=== PATIENT | female | born 1995 | race Caucasian/White ===

== ENCOUNTER → 2017-09-04 | Outpatient (REF) | payer MEDICAID ==
[~2017-09-04] MED LIST: PRENATAL VITAMIN PO
[2017-09-04 19:58] LABS: MEAN CORPUSCULAR VOLUME 94.2 fl (80.0-96.0); PLATELET COUNT, AUTOMATED 229 10^3/uL (150-450); WHITE BLOOD COUNT 6.6 10^3/uL (4.0-10.0)
[2017-09-04 20:56] LABS: HCG, SERUM QUANTITATIVE 3374 MIU/ML
[2017-09-06 11:41] LABS: HBsAg Prenatal NEGATIVE (NEGATIVE)
== END ==
LOC: M LAB REF 16:50
PROVIDERS: ATTEND Obstetrics & Gynecology
DX: O36.80X0 Pregnancy with inconclusive fetal viability, not applicable or unspecified (principal); Z3A.00 Weeks of gestation of pregnancy not specified

== ENCOUNTER → 2018-01-30 | Outpatient (CLI) | payer OTHER, MEDICAID ==
[2018-01-30 16:36] LABS: HEMATOCRIT 35.7 % (36.0-47.0); HEMOGLOBIN 12.5 g/dl (12.0-16.0); MEAN CORPUSCULAR HEMOGLOBIN 34.2 pg (27.0-33.0); MEAN CORPUSCULAR VOLUME 97.5 fl (80.0-96.0); PLATELET COUNT, AUTOMATED 196 10^3/uL (150-450); RED BLOOD COUNT 3.66 10^6/uL (4.00-5.40); RED CELL DISTRIBUTION WIDTH 12.9 % (11.5-14.5); WHITE BLOOD COUNT 8.6 10^3/uL (4.0-10.0)
[2018-01-30 17:13] LABS: GLUCOSE CHALLENGE TEST 1 HOUR 89 MG/DL (LESS THAN 140)
== END ==
LOC: M WUC 12:48
DX: Z34.82 Encounter for supervision of other normal pregnancy, second trimester (principal)

== ENCOUNTER → 2018-04-10 | Outpatient (REF) | payer OTHER, MEDICAID | LOC: M LAB REF 16:43 | DX: Z34.83 Encounter for supervision of other normal pregnancy, third trimester (principal) ==

== ENCOUNTER 2018-04-27 18:33 | Outpatient (CLI) | payer OTHER, MEDICAID | END 2018-04-27 20:25 | disposition home or self-care (01) | LOC: M LDO 18:33 | DX: O26.853 Spotting complicating pregnancy, third trimester (principal); O26.893 Other specified pregnancy related conditions, third trimester; Z3A.38 38 weeks gestation of pregnancy | CPT/HCPCS: 59025 ==

== ENCOUNTER 2018-04-29 00:58 | Inpatient (IN) | payer OTHER, MEDICAID ==
[2018-04-29 06:32] LABS: HEMATOCRIT 36.8 % (36.0-47.0); MEAN CORPUSCULAR HEMOGLOBIN 33.5 pg (27.0-33.0); MEAN CORPUSCULAR HGB CONC 35.3 g/dl (32.0-36.5); MEAN CORPUSCULAR VOLUME 94.8 fl (80.0-96.0); PLATELET COUNT, AUTOMATED 153 10^3/uL (150-450); RED BLOOD COUNT 3.88 10^6/uL (4.00-5.40); RED CELL DISTRIBUTION WIDTH 12.9 % (11.5-14.5); WHITE BLOOD COUNT 9.9 10^3/uL (4.0-10.0)
[2018-04-29] MEDS: LR 800 ML IV (06:37)
[2018-04-29] MEDS: LR 1,000 ML IV ×2 (07:17→18:45)
[2018-04-29] MEDS ORDERED: FENTANYL 2MCG/ML ROPIVACAINE 0.2% IN 0.9% NACL 200ML IVBAG As Ordered (07:47)
[2018-04-29] MEDS ORDERED: NALOXONE INJ 0.4 MG/1 ML VIAL (J2310) IV (09:00)
[2018-04-29] MEDS ORDERED: REFRIGERATOR IV KEYS XX (09:00)
[2018-04-29] MEDS ORDERED: FENTANYL/ROPIVACAINE/NACL BAG 200 ML EPIDURAL (09:00)
[2018-04-29] MEDS ORDERED: EPIDURAL COMMENT XX (09:00)
[2018-04-29] MEDS ORDERED: EPIDURAL/PCA KEYS XX (09:00)
[2018-04-29] MEDS ORDERED: ONDANSETRON 4MG/2ML VIAL (J2405) IV (09:00)
[2018-04-29] MEDS ORDERED: PRENATAL VITAMINS CHEWABLE TABLET PO (09:00)
[2018-04-29] MEDS ORDERED: diphenhydrAMINE INJ 50MG/ML VIAL (J1200) IV (09:00)
[2018-04-29] MEDS ORDERED: LACTATED RINGER'S 1000 ML IV (09:00)
[2018-04-29] MEDS ORDERED: ePHEDrine SULFATE 25 MG/5 ML(5MG/ML) SYRINGE IV (09:00)
[2018-04-29] MEDS: PRENATAL VITAMINS CHEWABLE TABLET PO (09:00)
[2018-04-29] MEDS ORDERED: OXYTOCIN 30 UNITS IN 0.9% NaCl 500ML IV BAG (J2590) As Ordered (09:51)
[2018-04-29] MEDS: OXYTOCIN DRIP 30 UNITS in APPROPRIATE DILUENT 1 EA IV (12:52)
[2018-04-29] MEDS ORDERED: METHYLERGONOVINE MALEATE 0.2 MG TAB PO (13:00)
[2018-04-29] MEDS ORDERED: ACETAMINOPHEN 500 MG TAB PO (13:00)
[2018-04-29] MEDS ORDERED: ANUSOL HC CREAM 30GM TOP (13:00)
[2018-04-29] MEDS ORDERED: DIBUCAINE 1% OINTMENT 30GM TOP (13:00)
[2018-04-29 13:19] LABS: CORD GAS ABE V -0.6; CORD GAS O2 SAT V 60.2 %; CORD GAS PCO2 V 44.7 mmHg; CORD GAS PH V 7.366 UNITS; CORD GAS PO2 V 26.2 mmHg; CORD GAS SBC V 22.9 MEQ/L; CORD GAS TCO2 V 26.4 MEQ/L
[2018-04-29 13:21] LABS: CORD GAS ABE A -0.9; CORD GAS HCO3 A 25.9 MEQ/L; CORD GAS O2 SAT A 50.7 %; CORD GAS PCO2 A 50.8 mmHg; CORD GAS PH A 7.326 UNITS; CORD GAS PO2 A 22.5 mmHg; CORD GAS SBC A 22.5 MEQ/L; CORD GAS TCO2 A 27.5 MEQ/L
[2018-04-29] MEDS: LR 400 ML IV (19:03)
[2018-04-29] MEDS: DOCUSATE SODIUM 100 MG CAP PO (19:27)
[2018-04-30] MEDS: PRENATAL VITAMINS CHEWABLE TABLET PO (08:28)
[2018-04-30] MEDS: IBUPROFEN 800 MG TAB PO (08:28)
[2018-04-30] MEDS: RHOGAM 300 MCG (1500 IU) INJ (J2790) IM (19:32)
[2018-04-30] MEDS: MEASLES,MUMPS,RUBELLA VACCINE INJ (MMR-II) (90707) SC (19:33)
[2018-05-01] MEDS: PRENATAL VITAMINS CHEWABLE TABLET PO (09:00)
== END 2018-05-01 10:35 | disposition home or self-care (01) | DRG 775 ==
LOC: M LDO 00:58 → M LDI 05:59 → M OBS 15:23
PROVIDERS: Obstetrics & Gynecology
PROC: 10E0XZZ Delivery of Products of Conception, External Approach (ICD-10-PCS; principal; 2018-04-29)
PROC: 10907ZC Drainage of Amniotic Fluid, Therapeutic from Products of Conception, Via Natural or Artificial Opening (ICD-10-PCS; 2018-04-29)
DX: O80 Encounter for full-term uncomplicated delivery (principal); Z37.0 Single live birth; Z3A.39 39 weeks gestation of pregnancy; Z88.0 Allergy status to penicillin; Z88.1 Allergy status to other antibiotic agents

== ENCOUNTER → 2019-07-09 | Outpatient (REF) | payer OTHER, MEDICAID ==
[~2019-07-09] MED LIST changes: +IBUP-1114 PO; +MAPA500T2 PO; +PRENTAB9 PO
[2019-07-09 17:50] LABS: HEMATOCRIT 40.9 % (36.0-47.0); HEMOGLOBIN 14.4 g/dl (12.0-15.5); MEAN CORPUSCULAR HGB CONC 35.2 g/dl (32.0-36.5); MEAN CORPUSCULAR VOLUME 93.6 fl (80.0-96.0); PLATELET COUNT, AUTOMATED 236 10^3/uL (150-450); RED BLOOD COUNT 4.37 10^6/uL (4.00-5.40); WHITE BLOOD COUNT 7.7 10^3/uL (4.0-10.0)
[2019-07-09 20:01] LABS: HCG, SERUM QUANTITATIVE 1036 MIU/ML
[2019-07-10 09:58] LABS: RUBELLA IgG QUALITATIVE IMMUNE (IMMUNE)
[2019-07-10 10:27] LABS: HEPATITIS C VIRUS ABY INDEX < 0.0 INDEX (<0.8)
[2019-07-10 10:28] LABS: HIV 1&2 SCREEN CENTAUR NEGATIVE (NEGATIVE)
== END ==
LOC: M LAB REF 16:49
PROVIDERS: ATTEND Nurse Practitioner Women's Health
DX: Z32.01 Encounter for pregnancy test, result positive (principal); O36.80X0 Pregnancy with inconclusive fetal viability, not applicable or unspecified

== ENCOUNTER → 2019-07-28 | Outpatient (REF) | payer OTHER, MEDICAID ==
[2019-07-28 14:51] LABS: CHLAMYDIA DNA AMPLIFICATION NEGATIVE (NEGATIVE); GC DNA AMPLIFICATION NEGATIVE (NEGATIVE)
== END ==
LOC: M LAB REF 13:06
PROVIDERS: ATTEND Advanced Practice Midwife
DX: Z34.81 Encounter for supervision of other normal pregnancy, first trimester (principal); Z3A.00 Weeks of gestation of pregnancy not specified

== ENCOUNTER → 2019-08-03 | Outpatient (CLI) | payer OTHER, MEDICAID | LOC: M SMT 13:18 | PROVIDERS: ATTEND Advanced Practice Midwife | DX: O02.1 Missed abortion (principal); Z3A.00 Weeks of gestation of pregnancy not specified ==

== ENCOUNTER → 2019-08-14 | Outpatient (CLI) | payer OTHER, MEDICAID | LOC: M SMT 15:37 | PROVIDERS: ATTEND Advanced Practice Midwife | DX: O02.1 Missed abortion (principal) ==

== ENCOUNTER 2019-10-02 16:45 | Emergency (ER) | payer OTHER, MEDICAID ==
[~2019-10-02] VITALS: Ht 170.2 cm; Wt 65.9 kg
[2019-10-02 17:50] LABS: BLOOD UREA NITROGEN 12 MG/DL (7-18); CALCIUM LEVEL 9.6 MG/DL (8.5-10.1); CARBON DIOXIDE LEVEL 28 MEQ/L (21-32); CHLORIDE LEVEL 107 MEQ/L (98-107); CREATININE FOR GFR 0.65 MG/DL (0.55-1.30); GLOMERULAR FILTRATION RATE > 60.0 (>60); GLUCOSE, FASTING 85 MG/DL (70-100); HCG, SERUM QUANTITATIVE 543 MIU/ML; POTASSIUM SERUM 4.3 MEQ/L (3.5-5.1); SODIUM LEVEL 140 MEQ/L (136-145)
[2019-10-02] MEDS ORDERED: ACETAMINOPHEN 325 MG TAB PO ONE (18:00)
[2019-10-02 18:45] LABS: BASO % 0.4 % (0.0-1.0); EOS # 0.1 10^3/uL (0.0-0.5); EOS % 1.3 % (0.0-3.0); HEMATOCRIT 41.9 % (36.0-47.0); HEMOGLOBIN 14.3 g/dl (12.0-15.5); LYMPH # 1.5 10^3/uL (1.5-5.0); LYMPH % 21.8 % (24.0-44.0); MEAN CORPUSCULAR HEMOGLOBIN 33.1 pg (27.0-33.0); MEAN CORPUSCULAR HGB CONC 34.1 g/dl (32.0-36.5); MONO # 0.6 10^3/uL (0.0-0.8); MONO % 8.5 % (0.0-5.0); NEUTROPHILS # 4.7 10^3/uL (1.5-8.5); NEUTROPHILS % 67.9 % (36.0-66.0); PLATELET COUNT, AUTOMATED 202 10^3/uL (150-450); RED BLOOD COUNT 4.32 10^6/uL (4.00-5.40)
--- NOTE | 2019-10-02 19:24 | REPVR ---
PROCEDURE INFORMATION: Exam: US , Transvaginal Exam date and time: 10/02/2019 6:38 PM Clinical history: 24 years old, female; Lmp or gestational age (in weeks): ~4; Antepartum complications; Bleeding; ; Additional info: + home test, vaginal bleeding TECHNIQUE: Imaging protocol: Real-time transvaginal obstetrical ultrasound of the maternal pelvis and a first trimester with image documentation. Transvaginal imaging was used for better evaluation of the fetus and adnexa. COMPARISON: No relevant prior studies available. FINDINGS: GESTATION: Gestation: No evidence of a gestational sac, yolk sac or pole within the uterus. MATERNAL: Uterus: Uterus measures 8.5 x 4.9 x 5.4 cm. Endometrial echocomplex measures 5 mm. Right adnexa: Examination of the right adnexal region demonstrates a complex solid-appearing mass measuring 2.8 x 2.2 x 1.8 cm. No significant increased flow demonstrated within the right adnexal region. Numerous follicles demonstrated in the right ovary. Left adnexa: Numerous follicles in the left ovary. Normal flow. IMPRESSION: Empty uterus in a patient with a weakly positive beta hCG level. Findings may indicate very early IUP prior to visualization of a gestational sac or fetus. Correlation with serial beta-hCG levels and follow ultrasound recommended in order to exclude ectopic (particularly in the setting of an apparent solid right ovarian or paraovarian mass) verses very early or early failure. Electronically signed by: Shadi Piedra On 10/02/2019 19:24:04 PM
[2019-10-02 20:01] VITALS: BP 137/69
== END 2019-10-02 20:09 | disposition home or self-care (01) ==
LOC: M ED 16:45
DX: O20.9 Hemorrhage in early pregnancy, unspecified (principal); Z88.1 Allergy status to other antibiotic agents; O99.330 Smoking (tobacco) complicating pregnancy, unspecified trimester; F17.210 Nicotine dependence, cigarettes, uncomplicated; Z3A.00 Weeks of gestation of pregnancy not specified

== ENCOUNTER → 2019-10-05 | Outpatient (CLI) | payer OTHER, MEDICAID | LOC: M SMT 10:01 | PROVIDERS: ATTEND Physician Assistant | DX: O26.859 Spotting complicating pregnancy, unspecified trimester (principal); Z3A.00 Weeks of gestation of pregnancy not specified ==

== ENCOUNTER → 2019-10-12 | Outpatient (REF) | payer OTHER | LOC: M PLALAB 10:47 | PROVIDERS: ATTEND Advanced Practice Midwife | DX: Z53.9 Procedure and treatment not carried out, unspecified reason (principal) ==

== ENCOUNTER → 2019-10-22 | Outpatient (CLI) | payer OTHER, MEDICAID | LOC: M PLALAB 13:12 | PROVIDERS: ATTEND Advanced Practice Midwife | DX: O03.9 Complete or unspecified spontaneous abortion without complication (principal) ==

== ENCOUNTER → 2019-10-27 | Outpatient (CLI) | payer OTHER, MEDICAID | LOC: M PLALAB 14:57 | PROVIDERS: ATTEND Advanced Practice Midwife | DX: O03.30 Unspecified complication following incomplete spontaneous abortion (principal) ==

== ENCOUNTER → 2019-11-03 | Outpatient (CLI) | payer OTHER, MEDICAID | LOC: M PLALAB 14:10 | PROVIDERS: ATTEND Advanced Practice Midwife | DX: O03.30 Unspecified complication following incomplete spontaneous abortion (principal) ==

== ENCOUNTER → 2019-11-09 | Outpatient (CLI) | payer OTHER, MEDICAID | LOC: M PLALAB 14:17 | PROVIDERS: ATTEND Advanced Practice Midwife | DX: O02.1 Missed abortion (principal) ==

== ENCOUNTER → 2020-04-06 | Outpatient (REF) | payer OTHER, MEDICAID ==
[2020-04-06 14:17] LABS: HEMATOCRIT 40.7 % (36.0-47.0); MEAN CORPUSCULAR HEMOGLOBIN 32.9 pg (27.0-33.0); MEAN CORPUSCULAR HGB CONC 34.4 g/dl (32.0-36.5); MEAN CORPUSCULAR VOLUME 95.8 fl (80.0-96.0); PLATELET COUNT, AUTOMATED 213 10^3/uL (150-450); RED BLOOD COUNT 4.25 10^6/uL (4.00-5.40)
[2020-04-06 15:36] LABS: HEPATITIS B SURFACE ANTIGEN NEGATIVE (NEGATIVE); HEPATITIS C VIRUS ABY INDEX 0.1 INDEX (<0.8); HIV 1&2 SCREEN CENTAUR NEGATIVE (NEGATIVE)
== END ==
LOC: M PLALAB 11:11
PROVIDERS: ATTEND Advanced Practice Midwife
DX: Z34.91 Encounter for supervision of normal pregnancy, unspecified, first trimester (principal)

== ENCOUNTER → 2020-04-20 | Outpatient (REF) | payer OTHER, MEDICAID ==
[2020-04-21 14:02] LABS: CHLAMYDIA DNA AMPLIFICATION NEGATIVE (NEGATIVE); GC DNA AMPLIFICATION NEGATIVE (NEGATIVE)
== END ==
LOC: M SFHCWAGY 08:45
PROVIDERS: ATTEND Advanced Practice Midwife
DX: Z12.4 Encounter for screening for malignant neoplasm of cervix (principal)

== ENCOUNTER → 2020-05-02 | Outpatient (CLI) | payer OTHER, MEDICAID ==
--- NOTE | 2020-05-02 11:11 | REP ---
Clinical: Early with vaginal bleeding. Technique: Transabdominal and transvaginal first trimester obstetrical ultrasound with color Doppler evaluation. Findings: Ultrasound examination demonstrates single live early intrauterine . Gestational sac with yolk sac and pole identified. CRL of 33 mm corresponds to 10 weeks 1 day gestational age with estimated date of delivery 11/27/2020. heart rate equals 176 beats per minute. A subchorionic hemorrhage is identified anterolateral to the gestational sac measuring 58 by 50 by 7 mm. Maternal ovaries are normal and a right corpus luteal cyst is identified. Impression: 1. Single live early intrauterine at 10 weeks 1 day gestational age. 2. Moderate subchorionic hemorrhage noted.
== END ==
LOC: M WHC 10:17
PROVIDERS: ATTEND Advanced Practice Midwife
DX: O20.0 Threatened abortion (principal)

== ENCOUNTER → 2020-06-02 | Outpatient (CLI) | payer OTHER, MEDICAID | LOC: M PLALAB 11:00 | PROVIDERS: ATTEND Advanced Practice Midwife | DX: Z34.82 Encounter for supervision of other normal pregnancy, second trimester (principal); Z36.89 Encounter for other specified antenatal screening ==

== ENCOUNTER → 2020-07-06 | Outpatient (CLI) | payer OTHER, MEDICAID ==
--- NOTE | 2020-08-08 10:52 | REP ---
OBSTETRIC ULTRASOUND FOR ANATOMY FINDINGS: There is a single intrauterine gestation in a transverse lie with the head to the maternal right. The placenta is posterior. THE INFERIOR MARGIN OF THE PLACENTA EXTENDS COMPLETELY ACROSS THE INTERNAL CERVICAL OS AND FORMS A COMPLETE PLACENTA PREVIA. There is no placenta abruption. Placental maturity is grade 0. heart rate is 140 beats per minute. Composite gestational age by todays ultrasound is 19 weeks 1 day. Estimated weight is 272 grams. This corresponds to the 41st percentile. Subjectively the amniotic fluid volume is normal. The following anatomic structures are identified and are unremarkable: Cisterna magna, cavum septum pellucidum, thalami, spine, stomach, kidneys, four chamber heart, cardiac right and left ventricular outflow tracts, bladder, three-vessel cord, cord insertion, upper and lower extremities, and face and upper lip. No anomalies are identified. IMPRESSION: THERE IS A COMPLETE PLACENTA PREVIA DESCRIBED. Otherwise, no anomalies. MTDD
== END ==
LOC: M WHC 09:34
PROVIDERS: ATTEND Advanced Practice Midwife
DX: O44.02 Complete placenta previa NOS or without hemorrhage, second trimester (principal); Z3A.19 19 weeks gestation of pregnancy

== ENCOUNTER → 2020-08-23 | Outpatient (CLI) | payer OTHER, MEDICAID ==
[2020-08-23 12:27] LABS: HEMATOCRIT 38.4 % (36.0-47.0); HEMOGLOBIN 12.8 g/dl (12.0-15.5); MEAN CORPUSCULAR HEMOGLOBIN 32.6 pg (27.0-33.0); MEAN CORPUSCULAR HGB CONC 33.3 g/dl (32.0-36.5); MEAN CORPUSCULAR VOLUME 97.7 fl (80.0-96.0); PLATELET COUNT, AUTOMATED 186 10^3/uL (150-450); RED BLOOD COUNT 3.93 10^6/uL (4.00-5.40); WHITE BLOOD COUNT 6.4 10^3/uL (4.0-10.0)
== END ==
LOC: M PLALAB 08:25
PROVIDERS: ATTEND Advanced Practice Midwife
DX: Z34.82 Encounter for supervision of other normal pregnancy, second trimester (principal); Z3A.00 Weeks of gestation of pregnancy not specified

== ENCOUNTER → 2020-10-03 | Outpatient (CLI) | payer OTHER, MEDICAID ==
--- NOTE | 2020-10-04 03:56 | REP ---
INDICATION: O44.03 F/U PLACENTA PREVIA COMPARISON: 07/06/2020 TECHNIQUE: Transabdominal obstetrical ultrasound with color Doppler evaluation. FINDINGS: Examination demonstrates a single live intrauterine in cephalic presentation. motion is identified by technologist. Placenta is noted posterior and grade 2 without evidence for placenta previa or abruption. Multiple venous lakes are again noted. The placental tip measures 3.8 cm from the closed internal os. Amniotic fluid volume is normal. Cervix appears closed. Gestational age at 31 weeks 6 days FHR equals 138 beats per minute. LEXUS: 11.7 cm IMPRESSION: Multiple placental venous lakes again noted. No evidence for placenta previa. <Electronically signed by Carl Chen > 10/04/20 [id number]
== END ==
LOC: M WHC 08:56
PROVIDERS: ATTEND Advanced Practice Midwife
DX: O44.03 Complete placenta previa NOS or without hemorrhage, third trimester (principal); Z3A.31 31 weeks gestation of pregnancy

== ENCOUNTER → 2020-11-07 | Outpatient (REF) | payer OTHER, MEDICAID | LOC: M LAB REF 13:10 | PROVIDERS: ATTEND Obstetrics & Gynecology | DX: Z36.89 Encounter for other specified antenatal screening (principal); Z3A.36 36 weeks gestation of pregnancy ==

== ENCOUNTER 2020-11-15 09:55 | Outpatient (CLI) | payer OTHER, MEDICAID ==
[~2020-11-15] VITALS: Ht 170.2 cm; Wt 87.7 kg
[2020-11-15 10:08] VITALS: BP 115/65
== END 2020-11-15 10:44 | disposition home or self-care (01) ==
LOC: M LDO 09:55
PROVIDERS: ATTEND Obstetrics & Gynecology
DX: O26.893 Other specified pregnancy related conditions, third trimester (principal); Z3A.38 38 weeks gestation of pregnancy
CPT/HCPCS: 59025; 59412; G0378; G0463

== ENCOUNTER 2020-11-23 06:55 | Inpatient (IN) | payer OTHER, MEDICAID ==
[~2020-11-23] VITALS: Ht 170.2 cm; Wt 89.5 kg
[2020-11-23] VITALS (33 sets, daily range): BP systolic 87–144; BP diastolic 56–88
[2020-11-23] MEDS ORDERED: PRENTAB9 PO (07:23)
[2020-11-23] MEDS: miSOPROStol 50MCG 1/2 TABLET PO SCH ×2 (09:00→13:16)
[2020-11-23 09:02] LABS: HEMATOCRIT 36.9 % (36.0-47.0); HEMOGLOBIN 12.7 g/dl (12.0-15.5); MEAN CORPUSCULAR HEMOGLOBIN 32.6 pg (27.0-33.0); MEAN CORPUSCULAR HGB CONC 34.4 g/dl (32.0-36.5); MEAN CORPUSCULAR VOLUME 94.9 fl (80.0-96.0); PLATELET COUNT, AUTOMATED 183 10^3/uL (150-450); RED BLOOD COUNT 3.89 10^6/uL (4.00-5.40); WHITE BLOOD COUNT 10.9 10^3/uL (4.0-10.0)
[2020-11-23] MEDS ORDERED: OXYTOCIN 30 UNITS IN 0.9% NaCl 500ML IV BAG (J2590) As Ordered ONE (17:43)
[2020-11-23] MEDS ORDERED: OXYTOCIN DRIP 30 UNITS in IV 1 EA IV SCH (17:45)
[2020-11-23] MEDS: LR 1,000 ML IV SCH ×2 (17:49→20:41)
[2020-11-23] MEDS ORDERED: FENTANYL 2MCG/ML ROPIVACAINE 0.2% IN 0.9% NACL 100ML IVBAG As Ordered ONE (20:07)
[2020-11-23] MEDS ORDERED: FENTANYL/ROPIVACAINE/NACL BAG 100 ML EPIDURAL SCH (21:00)
[2020-11-23] MEDS ORDERED: LACTATED RINGER'S 1000 ML IV PRN (21:00)
[2020-11-23] MEDS ORDERED: EPIDURAL COMMENT XX SCH (21:00)
[2020-11-23] MEDS ORDERED: ePHEDrine SULFATE 25 MG/5 ML(5MG/ML) SYRINGE IV PRN (21:00)
[2020-11-23] MEDS ORDERED: EPIDURAL/PCA KEYS XX PRN (21:00)
[2020-11-23] MEDS ORDERED: REFRIGERATOR IV KEYS XX PRN (21:00)
[2020-11-23] MEDS ORDERED: NALOXONE INJ 0.4MG/1ML VIAL (J2310 PER 1MG) IV PRN (21:00)
[2020-11-23] MEDS ORDERED: diphenhydrAMINE 50MG/ML VIAL (J1200) IV PRN (21:00)
[2020-11-23] MEDS ORDERED: ONDANSETRON 4MG/2ML VIAL IV PRN (21:00)
[2020-11-24] VITALS (10 sets, daily range): BP systolic 102–173; BP diastolic 55–86
[2020-11-24] MEDS ORDERED: OXYTOCIN DRIP 30 UNITS in IV 1 EA IV SCH (00:43)
[2020-11-24] MEDS ORDERED: METHYLERGONOVINE MALEATE 0.2 MG TAB PO PRN (00:45)
[2020-11-24] MEDS ORDERED: IBUPROFEN 800 MG TAB PO PRN (00:45)
[2020-11-24] MEDS ORDERED: DOCUSATE SODIUM 100MG CAPSULE PO PRN (00:45)
[2020-11-24] MEDS ORDERED: ACETAMINOPHEN 500 MG TAB PO PRN (00:45)
[2020-11-24] MEDS ORDERED: BENZOCAINE 20% HEMORRHOIDAL OINTMENT 28GM TUBE TOP PRN (00:45)
[2020-11-24] MEDS ORDERED: IBUPROFEN 600MG TAB PO PRN (00:45)
[2020-11-24] MEDS ORDERED: RHOGAM 300 MCG (1500 IU) INJ (J2790) IM SCH (00:45)
[2020-11-24] MEDS ORDERED: ACETAMINOPHEN TAB 650MG DOSE (2X325MG) PO PRN (00:45)
[2020-11-24] MEDS ORDERED: MEASLES,MUMPS,RUBELLA VACCINE INJ (MMR-II) (90707) SC SCH (00:45)
[2020-11-24] MEDS: PRENATAL VITAMINS CHEWABLE TABLET PO SCH (08:23)
--- NOTE | 2020-11-24 10:02 | HPE ---
HISTORY AND PHYSICAL DATE OF ADMISSION: 11/23/2020 HISTORY OF PRESENT ILLNESS: Lara is a 25-year-old 5, para 1-0-3-1, at 39 and 1/7 weeks gestation with EDC of 11/29/2020, based on last menstrual period and confirmed by first trimester ultrasound. She presents to labor and delivery today per consult with Dr. Shailesh Matias for induction of labor due to unstable lie. She denies any regular painful contractions, vaginal bleeding, or leakage or fluid. The fetus has been active. Her care was initiated at [facility] in the first trimester. Her course has been complicated by unstable lie, history of high grade Pap, subchorionic hematoma that resolved, and a complete placenta previa that resolved by 10/03/2020. OBSTETRIC HISTORY: May 2016, spontaneous miscarriage. April 2018, 39 2/7 weeks gestation spontaneous vaginal delivery of a 7 pound 15 ounce male. July 2019, spontaneous miscarriage. September 2019, spontaneous miscarriage. OBSTETRIC LABORATORY DATA: A positive. Antibody screen negative. Syphilis negative. Gonorrhea and chlamydia negative. Hep C antibody nonreactive. HIV negative. Rubella immune. Urine culture no growth. Gestational diabetic screening normal at 67 and her GBS is negative. Does not appear to have a recent hepatitis B surface antigen for this and will be drawn today. PAST MEDICAL HISTORY: 1. Abnormal Pap smear. 2. Anxiety. PAST SURGICAL HISTORY: D&C. FAMILY HISTORY: Cancer, hypertension, and heart disease. SOCIAL HISTORY: The patient is single; however, the father of the baby is at bedside and supportive. She is a nonsmoker. Denies alcohol and drug use. No history of any sexually transmitted infections. Denies history of abuse physical, sexual, and emotional. ALLERGIES: No known drug allergies. CURRENT MEDICATIONS: vitamin. PHYSICAL EXAMINATION: Temperature 98.4, pulse 86, respirations 18, blood pressure 115/65. She is alert and oriented x3, in no apparent distress, smiling and talkative. The heart rate is 145 with moderate variability, positive accelerations, negative decelerations. Contractions every 4 minutes mild. Abdomen is gravid. Cephalic presentation by Presley, as well as bedside ultrasound. Estimated weight is 7 pounds. PELVIC: Sterile vaginal exam 2 cm dilated, 50% effaced, -3 station, posterior, moderate texture, and no show with the exam. ASSESSMENT: Intrauterine at 39 1/7 weeks, heart rate category 1, term , unstable lie. PLAN: Admit the patient to labor and delivery. Routine labs. Out of bed ad eugenia. Regular diet at this time. Saline lock. Start misoprostol 50 mcg p.o. every four hours for cervical ripening. I reviewed risks, benefits, and alternatives to induction of labor. She has been verbally consented for emergency surgery and blood products, if they are necessary. She and her partners questions have been answered. She is desiring of an epidural when she is in active labor. I do anticipate cervical ripening.
[2020-11-25 06:00] VITALS: BP 100/56
[2020-11-25] MEDS: PRENATAL VITAMINS CHEWABLE TABLET PO SCH (07:51)
--- NOTE | 2020-11-25 12:56 | DN ---
DELIVERY NOTE DATE OF DELIVERY: 11/24/2020 TIME OF : 0022 GENDER: Female APGARS: 8 and 9 LACERATIONS: None ESTIMATED BLOOD LOSS: 400 mL. COUNTS: Correct and verified. DESCRIPTION OF DELIVERY: Lara is a 25-year-old 5, para 2-0-3-2 now, who was admitted to labor and delivery for induction of labor due to unstable lie. Misoprostol and IV Pitocin were used and labor did ensue. She utilized and epidural for her labor coping. She reached complete dilation at 0015. She pushed to a normal spontaneous vaginal delivery of a live female in left occiput anterior (BELL) position with restitution to left occiput transverse (LOT) position at 0022. There was a nuchal cord x1 loose that was reduced manually at the time of delivery. [place]'s shoulders delivered spontaneously and the corpus immediately followed. The 's mouth and nares were bulb suctioned, she was placed on the maternal abdomen for bonding, and she was crying and active. Cord was clamped x2 once pulsations ceased and cut by the father of the baby under my direction. A spontaneous expulsion of an intact placenta with three-vessel cord by Arthur mechanism was at 0025. Uterine hemostasis achieved with IV Pitocin rapid infusion and uterine fundal massage. Estimated blood loss 400 mL. Perineum and vagina inspected and noted to be intact. Mom plans to breastfeed her daughter. The family has named her Jeffrey. She weighed 7 pounds 11 ounces (3490 grams). 8 and 9. At the close of delivery, lap counts and instruments were correct and verified.
== END 2020-11-25 12:33 | disposition home or self-care (01) | DRG 807 ==
LOC: M LDI 06:55 → M OBS 11-24 02:20
PROVIDERS: ADMIT Obstetrics & Gynecology; ATTEND Obstetrics & Gynecology
PROC: 3E0P7GC Introduction of Other Therapeutic Substance into Female Reproductive, Via Natural or Artificial Opening (ICD-10-PCS; 2020-11-23)
PROC: 10907ZC Drainage of Amniotic Fluid, Therapeutic from Products of Conception, Via Natural or Artificial Opening (ICD-10-PCS; 2020-11-23)
PROC: 10E0XZZ Delivery of Products of Conception, External Approach (ICD-10-PCS; principal; 2020-11-24)
DX: O32.0XX0 Maternal care for unstable lie, not applicable or unspecified (principal); Z37.0 Single live birth; Z3A.39 39 weeks gestation of pregnancy; O69.81X0 Labor and delivery complicated by cord around neck, without compression, not applicable or unspecified

== ENCOUNTER → 2021-04-27 | Outpatient (REF) | payer OTHER, MEDICAID | LOC: M SFHCWAGY 18:59 | PROVIDERS: ATTEND Advanced Practice Midwife | DX: Z12.4 Encounter for screening for malignant neoplasm of cervix (principal); R87.613 High grade squamous intraepithelial lesion on cytologic smear of cervix (HGSIL) ==

== ENCOUNTER → 2021-06-16 | Outpatient (REF) | payer OTHER, MEDICAID | LOC: M PLALAB 14:25 | PROVIDERS: ATTEND Obstetrics & Gynecology | DX: R87.613 High grade squamous intraepithelial lesion on cytologic smear of cervix (HGSIL) (principal) ==

== ENCOUNTER → 2021-06-16 | Outpatient (REF) | payer OTHER, MEDICAID | LOC: M SFHCWAGY 19:14 | PROVIDERS: ATTEND Obstetrics & Gynecology | DX: R87.613 High grade squamous intraepithelial lesion on cytologic smear of cervix (HGSIL) (principal) ==

== ENCOUNTER → 2021-07-25 | Outpatient (REF) | payer OTHER, MEDICAID | LOC: M SFHCWAGY 10:11 | PROVIDERS: ATTEND Obstetrics & Gynecology | DX: D06.9 Carcinoma in situ of cervix, unspecified (principal) ==

== ENCOUNTER → 2022-05-01 | Outpatient (REF) | payer OTHER, MEDICAID | LOC: M SFHCWAGY 12:51 | PROVIDERS: ATTEND Obstetrics & Gynecology | DX: Z01.42 Encounter for cervical smear to confirm findings of recent normal smear following initial abnormal smear (principal) | CPT/HCPCS: 87624; G0123 ==

== ENCOUNTER → 2022-06-11 | Outpatient (REF) | payer OTHER, MEDICAID | LOC: M SFHCWAGY 17:06 | PROVIDERS: ATTEND Obstetrics & Gynecology | DX: R87.612 Low grade squamous intraepithelial lesion on cytologic smear of cervix (LGSIL) (principal); A63.0 Anogenital (venereal) warts ==

== ENCOUNTER → 2022-07-10 | Outpatient (CLI) | payer OTHER, MEDICAID | LOC: M RAD 15:25 | PROVIDERS: ATTEND Physician Assistant | DX: M25.812 Other specified joint disorders, left shoulder (principal); R93.7 Abnormal findings on diagnostic imaging of other parts of musculoskeletal system ==

== ENCOUNTER → 2022-08-10 | Outpatient (CLI) | payer OTHER, MEDICAID ==
[~2022-08-10] MED LIST changes: +PROHANCE 279.3MG/ML 15ML VIAL As Ordered ONE
== END ==
LOC: M RAD 09:50
PROVIDERS: ATTEND Physician Assistant
DX: M25.812 Other specified joint disorders, left shoulder (principal); R22.32 Localized swelling, mass and lump, left upper limb
CPT/HCPCS: 73223; A9576

== ENCOUNTER → 2023-05-13 | Outpatient (REF) | payer OTHER, MEDICAID ==
[~2023-05-13] MED LIST changes: -PROHANCE 279.3MG/ML 15ML VIAL As Ordered ONE
[2023-05-13 14:50] LABS: GC DNA AMPLIFICATION NEGATIVE (NEGATIVE)
== END ==
LOC: M SFHCWAGY 12:51
PROVIDERS: ATTEND Obstetrics & Gynecology
DX: Z12.4 Encounter for screening for malignant neoplasm of cervix (principal); Z01.419 Encounter for gynecological examination (general) (routine) without abnormal findings; Z77.9 Other contact with and (suspected) exposures hazardous to health; Z11.3 Encounter for screening for infections with a predominantly sexual mode of transmission

== ENCOUNTER → 2023-09-07 | Outpatient (CLI) | payer OTHER, MEDICAID | LOC: M RAD 12:54 | PROVIDERS: ATTEND Orthopaedic Surgery | DX: S43.62XA Sprain of left sternoclavicular joint, initial encounter (principal); M25.412 Effusion, left shoulder; M85.412 Solitary bone cyst, left shoulder; Y93.9 Activity, unspecified; Y92.9 Unspecified place or not applicable ==

== ENCOUNTER → 2024-06-17 | Outpatient (REF) | payer MEDICAID, OTHER ==
[2024-06-20 16:07] LABS: HPV APTIMA Detected (Not Detected)
== END ==
LOC: M SFHCWAGY 08:03
PROVIDERS: ATTEND Nurse Practitioner Family
DX: Z12.4 Encounter for screening for malignant neoplasm of cervix (principal)

== ENCOUNTER → 2024-08-31 | Outpatient (REF) | payer OTHER, MEDICAID | LOC: M SFHCWAGY 14:57 | PROVIDERS: ATTEND Obstetrics & Gynecology | DX: N87.1 Moderate cervical dysplasia (principal); B97.7 Papillomavirus as the cause of diseases classified elsewhere ==

== ENCOUNTER 2024-11-13 08:08 | Day surgery (SDC) | payer OTHER ==
[~2024-11-13] VITALS: Ht 177.8 cm; Wt 79.8 kg
[2024-11-13] MEDS ORDERED: LR 1,000 ML IV SCH ×2 (08:10→12:40)
[2024-11-13 09:18] LABS: HEMATOCRIT 41.8 % (36.0-47.0); HEMOGLOBIN 14.3 g/dl (12.0-15.5); MEAN CORPUSCULAR HEMOGLOBIN 32.9 pg (27.0-33.0); MEAN CORPUSCULAR HGB CONC 34.2 g/dl (32.0-36.5); MEAN CORPUSCULAR VOLUME 96.3 fl (80.0-96.0); PLATELET COUNT, AUTOMATED 198 10^3/uL (150-450); RED BLOOD COUNT 4.34 10^6/uL (4.00-5.40); WHITE BLOOD COUNT 5.2 10^3/uL (4.0-10.0)
[2024-11-13] MEDS: ceFAZolin SOD 2 GM in IV 1 EA IV ONE (10:57)
[2024-11-13] MEDS: METHYLENE BLUE 0.5% (5MG/ML) 10 ML AMP (PROVAYBLUE) As Ordered ONE (11:11)
[2024-11-13] MEDS ORDERED: LABETALOL 100MG/20ML VIAL As Ordered ONE (11:54)
[2024-11-13] MEDS ORDERED: KETOROLAC 60MG 2ML VIAL As Ordered ONE (12:06)
[2024-11-13] MEDS ORDERED: propofoL 200 MG/20 ML VIAL As Ordered ONE (12:06)
[2024-11-13] MEDS ORDERED: SUGAMMADEX SODIUM 500 MG/5 ML VIAL (BRIDION) As Ordered ONE (12:06)
[2024-11-13] MEDS ORDERED: HYDROmorphone HCL 2MG/ML 1ML VIAL As Ordered ONE (12:06)
[2024-11-13] MEDS ORDERED: ACETAMINOPHEN 1000MG/100ML IV BAG As Ordered ONE (12:06)
[2024-11-13] MEDS ORDERED: dexmedeTOMIDine (4MCG/ML)200MCG/50ML BTL (PRECEDEX) As Ordered ONE (12:06)
[2024-11-13] MEDS ORDERED: MIDAZOLAM INJ 2MG/2ML VIAL As Ordered ONE (12:06)
[2024-11-13] MEDS ORDERED: LIDOCAINE 2% 100MG/5ML SDV (FOR ANES.) As Ordered ONE (12:06)
[2024-11-13] MEDS ORDERED: ONDANSETRON 4MG 2ML VIAL As Ordered ONE (12:06)
[2024-11-13] MEDS ORDERED: fentaNYL 250 MCG/5 ML INJECTION As Ordered ONE (12:06)
[2024-11-13] MEDS ORDERED: ROCURONIUM BROMIDE 50MG/5ML VIAL As Ordered ONE (12:06)
[2024-11-13] MEDS ORDERED: METOCLOPRAMIDE INJ 10MG/2ML VIAL As Ordered ONE (12:06)
[2024-11-13] MEDS ORDERED: DESFLURANE 240 ML INHALANT As Ordered ONE (12:29)
[2024-11-13] MEDS ORDERED: oxyCODONE 5MG TAB PO PRN (12:40)
[2024-11-13] MEDS ORDERED: MORPHINE 4 MG/ML 1ML VIAL IV PRN (12:40)
[2024-11-13] MEDS ORDERED: PERCOCET 5MG/325MG TAB PO PRN ×2 (12:40)
[2024-11-13] MEDS ORDERED: fentaNYL 100 MCG/2 ML INJECTION IV PRN (12:40)
[2024-11-13] MEDS ORDERED: ONDANSETRON 4MG 2ML VIAL IV PRN ×2 (12:40)
[2024-11-13] MEDS ORDERED: COLA100C5 PO (12:46)
[2024-11-13] MEDS ORDERED: IBUP80TA PO (12:46)
[2024-11-13] MEDS ORDERED: PERCOCET PO (12:46)
[2024-11-13 14:00] VITALS: BP 110/71; TEMP 98.5; O2SAT 99
[2024-11-13 14:35] VITALS: BP 121/69; TEMP 98.2; O2SAT 100
[2024-11-13 15:05] VITALS: BP 117/71; TEMP 98.7; O2SAT 100
[2024-11-13 16:05] VITALS: BP 127/66; TEMP 99.3; O2SAT 98
[2024-11-13] MEDS ORDERED: KETOROLAC 30 MG/ML 1ML VIAL IV SCH (18:00)
[2024-11-13] MEDS ORDERED: DOCUSATE SODIUM 100MG CAPSULE PO SCH (21:00)
[2024-11-14] MEDS ORDERED: IBUPROFEN 800 MG TAB PO SCH (18:00)
== END 2024-11-13 16:36 | disposition home or self-care (01) ==
LOC: M SDC 08:08 → M OBS 13:55 → M SDC 16:36
PROVIDERS: ATTEND Obstetrics & Gynecology
DX: D06.9 Carcinoma in situ of cervix, unspecified (principal); Z88.1 Allergy status to other antibiotic agents
CPT/HCPCS: 36415; 58571; 81025; 85027; 86850; 86900; 86901; 88307; J0131; J0665; J0690; J1100; J1171; J1885; J1920; J2250; J2405; J2765; J3010; Q9968; S2900

== ENCOUNTER → 2025-07-09 | Outpatient (REF) | payer OTHER, MEDICAID ==
[~2025-07-09] MED LIST changes: +COLA100C5 PO; +IBUP80TA PO; +PERCOCET PO
== END ==
LOC: M SFHCWAGY 14:57
PROVIDERS: ATTEND Obstetrics & Gynecology
DX: Z12.72 Encounter for screening for malignant neoplasm of vagina (principal); Z12.4 Encounter for screening for malignant neoplasm of cervix